=== PATIENT | male | born 1960 | race Asian ===

== ENCOUNTER 2022-10-11 16:35 | Emergency (ER) | payer OTHER ==
[~2022-10-11] VITALS: Ht 170.2 cm; Wt 115.8 kg
[~2022-10-11 16:35] MED LIST: ACET-206 PO; ALUMSUS6 PO; AMANTADINE HYD PO; AMANTADINE100 MG PO; ARTIFICIAL TEAR1.4 % OPTH; ATOR20TA2 PO; Artificial Tears 0.2 OPTH; BISACODYL LAXAT10 MG RE; CVS SENNA8.6 MG PO; DICYCLOMINE HYD10 MG PO; DICYCLOMINE HYD20 MG PO; DIVA250T PO; DIVALPROEX250 MG PO; DULCOLAX 10MG SUPP PR; ESCI10TA PO; FAMOTIDINE20 MG PO; FOLI1TAB26 PO; FURO40TA93 PO; GERI-LANTA PO; GLIM2TAB PO; GLIM4TAB PO; GLUCAGON EMERGEN1 MG SC; HYDR10TA PO; INSU300I SC; KP FOLIC ACID1 MG PO; LACTSYP31 PO; LACTULOSE10 GM/15 M PO; LATA0.00 OPTH; LEVEMIR FL100 UNIT/M SC; LIPITOR20 MG PO; MAGNSUS68 PO; MEDR10TA4 PO; MEDR2.5T19 PO; MILK OF MA400 MG/5 M PO; MIRALAX 17GM PAK PO; MYLANTA MAXIMUM1 SUS PO; OLANZAPINE15 MG PO; OLANZAPINE5 MG PO; OXYGEN; PEPCID40 MG PO; POLY GLYCOL3350 M1 PO; POTA20TA4 PO; PRED10TA27 PO; RANI150T78 PO; RISP1TAB PO; TRAZ50TA36 PO; TYLENOL325 MG PO; VISINE DRY EYE OPTH; VITAMIN D50000 UNIT PO; ZINC220 MG PO
[2022-10-11 16:54] LABS: PLATELET COUNT 341 K/uL (142-355)
[2022-10-11 17:03] LABS: POTASSIUM 3.9 mmol/L (3.6-5.2)
[2022-10-11 19:59] VITALS: BP 120/68; TEMP 98
[2022-10-11] MEDS ORDERED: ESCITALOPRAM10 MG PO (21:13)
== END 2022-10-11 19:59 | disposition still patient (30) ==
LOC: ED 16:35
PROVIDERS: Emergency Medicine
DX: R46.89 Other symptoms and signs involving appearance and behavior (principal); D72.828 Other elevated white blood cell count; Z11.52 Encounter for screening for COVID-19; Z04.6 Encounter for general psychiatric examination, requested by authority
CPT/HCPCS: 80053; 81002; 83690; 85027; 87635; 93005; 99283; U0003

== ENCOUNTER 2022-11-08 17:01 | Emergency (ER) | payer OTHER ==
[~2022-11-08] VITALS: Ht 165.1 cm; Wt 111.6 kg
[2022-11-08 17:01] VITALS: BP 115/71; TEMP 99.4
[~2022-11-08 17:01] MED LIST changes: +ESCITALOPRAM10 MG PO; +INSU-1996 SC; +MEDROXYPR AC10 MG PO; +SIME80CH32 PO; +ZINC220C4 PO
[2022-11-08 17:32] LABS: PLATELET COUNT 262 K/uL (142-355)
[2022-11-08 17:36] LABS: POTASSIUM 4.1 mmol/L (3.6-5.2)
[2022-11-08] MEDS ORDERED: OLANZAPINE7.5 MG PO (20:09)
[2022-11-08] MEDS ORDERED: ZYPREXA ZYDI15 MG PO (20:11)
[2022-11-08] MEDS ORDERED: POTASSIUM CHLO20 ME1 PO (20:13)
[2022-11-08] MEDS ORDERED: DIVALPROEX500 M1 PO (20:18)
[2022-11-08] MEDS ORDERED: HALO5INJ3 IM (20:32)
== END 2022-11-08 19:00 | disposition still patient (30) ==
LOC: ED 17:01
PROVIDERS: Emergency Medicine
DX: F20.89 Other schizophrenia (principal); Z11.52 Encounter for screening for COVID-19; Z04.6 Encounter for general psychiatric examination, requested by authority
CPT/HCPCS: 80053; 81002; 85027; 87635; 93005; 99283; U0003